=== PATIENT | male | born 1960 | race Caucasian/White ===

== ENCOUNTER → 2016-12-15 | Outpatient (CLI) | payer OTHER | END | disposition home or self-care (01) | LOC: CARD 08:41 | PROVIDERS: ATTEND Internal Medicine | DX: I49.3 Ventricular premature depolarization (principal) | CPT/HCPCS: 93017 ==

== ENCOUNTER → 2017-03-05 | Outpatient (CLI) | payer OTHER ==
[~2017-03-05] MED LIST: AMLO10TA2 PO; AZEL137S4 NAS; FLUT16SP NAS; LISI-170 PO; METO25TA91 PO; OMNIPAQUE 350 MG/ML, 100ML BOTTLE ONE
== END | disposition home or self-care (01) ==
LOC: RAD 13:50
PROVIDERS: ATTEND Internal Medicine Cardiovascular Disease
DX: I71.2 Thoracic aortic aneurysm, without rupture (principal)
CPT/HCPCS: 71275; Q9967

== ENCOUNTER → 2017-03-16 | Outpatient (CLI) | payer OTHER ==
[~2017-03-16] MED LIST changes: -OMNIPAQUE 350 MG/ML, 100ML BOTTLE ONE; +OMNIPAQUE 350 MG/ML, 150 ML BOTTLE ONE
== END | disposition home or self-care (01) ==
LOC: CFH 14:03
PROVIDERS: ATTEND Internal Medicine Cardiovascular Disease
DX: I48.91 Unspecified atrial fibrillation (principal); K44.9 Diaphragmatic hernia without obstruction or gangrene; Z82.49 Family history of ischemic heart disease and other diseases of the circulatory system
CPT/HCPCS: 75572; Q9967

== ENCOUNTER 2017-03-18 06:13 | Day surgery (SDC) | payer OTHER ==
[2017-03-16 13:00] VITALS: BP 126/85
[2017-03-16 13:55] LABS: ASPARTATE AMINO TRANSFERASE 11 U/L (15-37); BLOOD UREA NITROGEN 28 mg/dL (7-18)
[~2017-03-18] VITALS: Ht 177.8 cm; Wt 100.0 kg
[~2017-03-18 06:13] MED LIST changes: -OMNIPAQUE 350 MG/ML, 150 ML BOTTLE ONE
[2017-03-18] MEDS ORDERED: SODIUM CHLORIDE 0.9% 1,000 ML IV SCH (06:28)
[2017-03-18] MEDS ORDERED: SODIUM CHLORIDE 0.9% 1,000 ML IV ONE (06:30)
[2017-03-18] MEDS ORDERED: HEPARIN 1,000 UNITS/ML, 10ML ONE (07:32)
[2017-03-18] MEDS ORDERED: BUPIVACAINE 0.25% ONE (07:32)
[2017-03-18] MEDS ORDERED: FENTANYL PF 250 MCG/5ML ONE (07:42)
[2017-03-18] MEDS ORDERED: MIDAZOLAM 1 MG/ML, 5ML ONE (07:43)
[2017-03-18] MEDS ORDERED: DEXAMETHASONE 4 MG/ML, 1ML ONE (07:55)
[2017-03-18] MEDS ORDERED: ONDANSETRON 2MG/ML, 2ML ONE (07:55)
[2017-03-18] MEDS ORDERED: PROPOFOL 10 MG/ML, 20ML ONE (07:55)
[2017-03-18] MEDS ORDERED: SUCCINYLCHOLINE 20 MG/ML, 10ML ONE (07:55)
[2017-03-18] MEDS ORDERED: ISOPROTERENOL 0.2MG/ML, 5ML ONE (08:53)
[2017-03-18] MEDS ORDERED: ADENOSINE 6 MG/2 ML ONE (09:54)
[2017-03-18] MEDS ORDERED: FENTANYL PF 100 MCG/2ML ONE ×2 (10:49→11:31)
[2017-03-18] MEDS ORDERED: ACETAMINOPHEN 650 MG/20.3 ML UDC ONE (10:49)
[2017-03-18] MEDS ORDERED: OXYcodone 5 MG/5 ML ORAL.SOL UDC ONE (10:50)
[2017-03-18] MEDS ORDERED: OXYcodone 5 MG/5 ML ORAL.SOL UDC PO PRN (11:00)
[2017-03-18] MEDS ORDERED: MEPERIDINE/PF 25MG/0.5ML IVPush PRN (11:00)
[2017-03-18] MEDS ORDERED: HYDROmorphone 1 MG/ML, 1ML IV PRN (11:00)
[2017-03-18] MEDS ORDERED: ONDANSETRON 2MG/ML, 2ML IVPush PRN (11:00)
[2017-03-18] MEDS ORDERED: ACETAMINOPHEN 325 MG TABLET PO PRN (11:00)
[2017-03-18] MEDS ORDERED: PROMETHAZINE 25 MG/ML, 1ML IV PRN (11:00)
[2017-03-18] MEDS ORDERED: MIDAZOLAM 1 MG/ML, 2ML IV PRN (11:00)
[2017-03-18] MEDS: FENTANYL PF 100 MCG/2ML IV PRN ×4 (11:09→11:33)
[2017-03-18] MEDS ORDERED: HYDROmorphone 1 MG/ML, 1ML ONE (11:20)
[2017-03-18] MEDS ORDERED: ONDANSETRON ODT 4 MG ONE (16:22)
[2017-03-18] MEDS ORDERED: ONDANSETRON 4 MG TABLET PO ONE (16:30)
[2017-03-19] MEDS ORDERED: FLUTICASONE NASAL SPRAY 16GM NAS SCH (09:00)
[2017-03-19] MEDS ORDERED: LISINOPRIL 20 MG TABLET PO SCH (09:00)
[2017-03-19] MEDS ORDERED: AMLODIPINE 5 MG TABLET PO SCH (09:00)
[2017-03-19] MEDS ORDERED: AZELASTINE NASAL HOMEINH SCH (09:00)
== END 2017-03-18 18:18 | disposition home or self-care (01) ==
LOC: CACL 06:13 → 5SO 12:16 → CACL 18:18
PROVIDERS: ATTEND Internal Medicine Cardiovascular Disease
DX: I47.1 Supraventricular tachycardia (principal); Z79.01 Long term (current) use of anticoagulants; I10 Essential (primary) hypertension; Z88.2 Allergy status to sulfonamides; Z82.49 Family history of ischemic heart disease and other diseases of the circulatory system; I48.91 Unspecified atrial fibrillation; I08.0 Rheumatic disorders of both mitral and aortic valves
CPT/HCPCS: 36415; 71020; 80053; 85025; 85610; 85730; 93005; 93312; 93321; 93325; 93613; 93621; 93623; 93653; 93655; C1730; C1766; C1894; C2630; J0153; J0330; J1100; J1170; J2250; J2405; J2704; J3010; J3490; Q0162; J1644

== ENCOUNTER → 2019-02-18 | Outpatient (CLI) | payer OTHER ==
[~2019-02-18] MED LIST changes: +AMLO-150 PO; -AMLO10TA2 PO; +AMLO10TA8 PO; +ASPI-496 PO; +FLEC100T PO; +LISI40TA PO; +METF500T17 PO; +METO25TA35 PO; +OXYC-307 PO; +ROSU10TA2 PO; +SPIR25TA5 PO
[2019-02-18 16:45] LABS: BASOPHILS # (AUTO) 0.02 x10^3/uL (0-0.1); BASOPHILS % (AUTO) 0 % (0-1); EOSINOPHILS # (AUTO) 0.24 x10^3/uL (0-0.4); EOSINOPHILS % (AUTO) 5 % (1-7); LYMPHOCYTES % (AUTO) 26 % (22-44); MD NO; MEAN CORPUSCULAR HEMOGLOBIN 31.4 pg (27.5-34.5); MEAN CORPUSCULAR HGB CONC 33.2 g/dL (33.2-36.2); MEAN CORPUSCULAR VOLUME 94.6 fL (81-97); MEAN PLATELET VOLUME 7.8 fL (7.4-10.4); MONOCYTES # (AUTO) 0.37 x10^3/uL (0.2-0.8); MONOCYTES % (AUTO) 7 % (2-9); NEUTROPHILS # (AUTO) 3.44 x10^3/uL (1.8-6.8); NEUTROPHILS % (AUTO) 63 % (42-75); PLATELET COUNT 237 x10^3/uL (130-400); RED BLOOD COUNT 4.74 x10^6/uL (4.38-5.82); RED CELL DISTRIBUTION WIDTH 13.8 % (9.4-14.8)
[2019-02-18 16:48] LABS: MICROSCOPIC NOT IND
[2019-02-18 16:52] LABS: INTERNATIONAL NORMALIZED RATIO 0.95 (0.93-1.1)
[2019-02-18 16:54] LABS: ALANINE AMINOTRANSFERASE 100 U/L (12-78); ANION GAP 5 mmol/L (5-15); CALCIUM 8.9 mg/dL (8.5-10.1); CHLORIDE 107 mmol/L (98-107); CREATININE 0.95 mg/dL (0.7-1.3)
[2019-02-18 16:56] LABS: CULTURE INDICATED? NO
[2019-02-18 17:06] LABS: ALKALINE PHOSPHATASE 111 U/L (45-117); BILIRUBIN,TOTAL 0.4 mg/dL (0.2-1.0); TOTAL PROTEIN 7.5 g/dL (6.4-8.2)
== END | disposition home or self-care (01) ==
LOC: STAR 15:45
PROVIDERS: ATTEND Neurological Surgery
DX: Z01.818 Encounter for other preprocedural examination (principal); K44.9 Diaphragmatic hernia without obstruction or gangrene; M48.061 Spinal stenosis, lumbar region without neurogenic claudication; M43.08 Spondylolysis, sacral and sacrococcygeal region; Z98.890 Other specified postprocedural states
CPT/HCPCS: 36415; 71046; 80053; 81003; 85025; 85610; 85730; 93005

== ENCOUNTER 2019-03-23 07:28 | Inpatient (IN) | payer OTHER ==
[2019-03-22 08:28] LABS: MICROSCOPIC NOT IND
[2019-03-22 08:32] LABS: CULTURE INDICATED? NO
[2019-03-22 08:33] LABS: BASOPHILS # (AUTO) 0.01 x10^3/uL (0-0.1); BASOPHILS % (AUTO) 0 % (0-1); EOSINOPHILS # (AUTO) 0.19 x10^3/uL (0-0.4); EOSINOPHILS % (AUTO) 4 % (1-7); LYMPHOCYTES # (AUTO) 1.09 x10^3/uL (1-3.4); LYMPHOCYTES % (AUTO) 23 % (22-44); MD NO; MEAN CORPUSCULAR HEMOGLOBIN 31.3 pg (27.5-34.5); MEAN CORPUSCULAR VOLUME 92.3 fL (81-97); MEAN PLATELET VOLUME 7.6 fL (7.4-10.4); MONOCYTES # (AUTO) 0.26 x10^3/uL (0.2-0.8); MONOCYTES % (AUTO) 6 % (2-9); NEUTROPHILS # (AUTO) 3.13 x10^3/uL (1.8-6.8); NEUTROPHILS % (AUTO) 67 % (42-75); PLATELET COUNT 236 x10^3/uL (130-400); RED BLOOD COUNT 4.93 x10^6/uL (4.38-5.82); RED CELL DISTRIBUTION WIDTH 12.7 % (9.4-14.8)
[2019-03-22 08:36] VITALS: BP 127/85
[2019-03-22 08:36] LABS: INTERNATIONAL NORMALIZED RATIO 0.95 (0.93-1.1)
[2019-03-22 08:38] LABS: ALANINE AMINOTRANSFERASE 92 U/L (12-78); ANION GAP 9 mmol/L (5-15); CALCIUM 8.8 mg/dL (8.5-10.1); CHLORIDE 105 mmol/L (98-107); CREATININE 1.03 mg/dL (0.7-1.3)
[2019-03-22 08:40] LABS: ALKALINE PHOSPHATASE 80 U/L (45-117); BILIRUBIN,TOTAL 0.4 mg/dL (0.2-1.0); TOTAL PROTEIN 7.6 g/dL (6.4-8.2)
[~2019-03-23] VITALS: Ht 177.8 cm; Wt 117.2 kg
[~2019-03-23 07:28] MED LIST changes: +BACITRACIN 50,000 UNIT ONE; +BUPIVACAINE/EPI 0.5% 1:200K ONE; -FLUT16SP NAS; +FLUT16SP24 NAS; +THROMBIN 5,000 UNIT VIAL TP ONE; +VANCOMYCIN 1,000 MG ONE
[2019-03-23] MEDS ORDERED: PROPOFOL 100 ML ONE (07:52)
[2019-03-23] MEDS ORDERED: MIDAZOLAM 1 MG/ML, 2ML ONE (07:52)
[2019-03-23] MEDS ORDERED: FENTANYL PF 250 MCG/5ML ONE (07:54)
[2019-03-23] MEDS ORDERED: LACTATED RINGERS 1,000 ML IV SCH (07:57)
[2019-03-23] MEDS ORDERED: GABAPENTIN 300 MG CAPSULE PO ONE (08:00)
[2019-03-23] MEDS ORDERED: PROMETHAZINE 25 MG/ML, 1ML IV PRN (08:00)
[2019-03-23] MEDS ORDERED: LABETALOL 5MG/ML, 20ML IV PRN (08:00)
[2019-03-23] MEDS ORDERED: ACETAMINOPHEN 500 MG TABLET PO ONE (08:00)
[2019-03-23] MEDS ORDERED: MEPERIDINE/PF 25MG/0.5ML IVPush PRN (08:00)
[2019-03-23] MEDS ORDERED: OxyconTIN ER 20 MG TAB.ER PO ONE (08:00)
[2019-03-23] MEDS ORDERED: OXYcodone 5 MG/5 ML ORAL.SOL UDC PO PRN (08:00)
[2019-03-23] MEDS ORDERED: FAMOTIDINE 20 MG TABLET PO ONE (08:00)
[2019-03-23] MEDS ORDERED: ONDANSETRON 2MG/ML, 2ML IV PRN (08:00)
[2019-03-23] MEDS ORDERED: hydrALAzine 20 MG/ML, 1ML IV PRN (08:00)
[2019-03-23] MEDS ORDERED: SCOPOLAMINE PATCH, 1.5MG PATCH.TD72 TD ONE (08:46)
[2019-03-23] MEDS ORDERED: DEXAMETHASONE 4 MG/ML, 1ML ONE (09:11)
[2019-03-23] MEDS ORDERED: CEFAZOLIN 1,000 MG ONE ×2 (09:12)
[2019-03-23] MEDS ORDERED: VANCOMYCIN 1,000 MG IM ONE (09:46)
[2019-03-23] MEDS ORDERED: ONDANSETRON 2MG/ML, 2ML ONE (10:14)
[2019-03-23] MEDS ORDERED: PROPOFOL 10 MG/ML, 20ML ONE (10:14)
[2019-03-23] MEDS ORDERED: ROCURONIUM 10MG/ML,5ML ONE (10:14)
[2019-03-23] MEDS ORDERED: SUCCINYLCHOLINE 20 MG/ML, 10ML ONE (10:14)
[2019-03-23] MEDS ORDERED: FENTANYL PF 100 MCG/2ML ONE (12:10)
[2019-03-23] MEDS ORDERED: HYDROmorphone 2 MG/ML, 1ML ONE (12:11)
[2019-03-23] MEDS ORDERED: OXYcodone 5 MG/5 ML ORAL.SOL UDC ONE (12:11)
[2019-03-23] MEDS: FENTANYL PF 100 MCG/2ML IV PRN ×2 (12:17→12:39)
[2019-03-23] MEDS: HYDROmorphone 2 MG/ML, 1ML IVPush PRN ×4 (12:17→12:56)
[2019-03-23] MEDS ORDERED: DIAZEPAM 5 MG/ML, 2ML ONE (12:26)
[2019-03-23] MEDS: DIAZEPAM 5 MG/ML, 2ML IVPush PRN ×2 (12:31→12:54)
[2019-03-23 13:33] VITALS: BP 113/74
[2019-03-23] MEDS ORDERED: HYDROmorphone 2 MG/ML, 1ML IM PRN (15:00)
[2019-03-23] MEDS ORDERED: BISACODYL 10 MG SUPP PR PRN (15:30)
[2019-03-23] MEDS ORDERED: DIPHENHYDRAMINE 50 MG/ML, 1ML IM PRN (15:30)
[2019-03-23] MEDS ORDERED: DIPHENHYDRAMINE 50 MG/ML, 1ML IVPush PRN (15:30)
[2019-03-23] MEDS ORDERED: PROMETHAZINE 25 MG/ML, 1ML IM PRN (15:30)
[2019-03-23] MEDS ORDERED: DIPHENHYDRAMINE 25 MG CAPSULE PO PRN (15:30)
[2019-03-23] MEDS ORDERED: MAGNESIUM HYDROXIDE 8%, 30ML UDC PO PRN (15:30)
[2019-03-23] MEDS ORDERED: METHOCARBAMOL 1,000 MG in DEXTROSE 5% 100 ML IV ONE (15:30)
[2019-03-23] MEDS: HYDROmorphone 1 MG/ML, 1ML INJ IVPush PRN ×3 (15:34→22:17)
[2019-03-23] MEDS: OXYcodone/APAP 10/325MG TABLET PO PRN (15:34)
[2019-03-23] MEDS: NS + 20MEQ KCL 1,000 ML IV SCH (15:35)
[2019-03-23] MEDS: metFORMIN 500 MG TABLET PO SCH (17:06)
[2019-03-23] MEDS: INSULIN REGULAR 100 UNITS/ML, 3ML VIAL SQ-INSULIN SCH ×2 (17:06→20:52)
[2019-03-23] MEDS: CEFAZOLIN PMX 1GM/50ML 50 ML IVPB SCH (17:07)
[2019-03-23] MEDS: HYDROmorphone 2MG TABLET PO PRN ×2 (19:37→20:51)
[2019-03-23 20:00] VITALS: BP 113/72
[2019-03-23] MEDS: ATORVASTATIN 40 MG TABLET PO SCH (20:49)
[2019-03-23] MEDS: AMLODIPINE 5 MG TABLET PO SCH (20:51)
[2019-03-23] MEDS: FLECAINIDE 100MG TABLET PO SCH (20:51)
[2019-03-24 00:08] VITALS: BP 115/79
[2019-03-24] MEDS: HYDROmorphone 2MG TABLET PO PRN ×6 (00:34→21:23)
[2019-03-24] MEDS: CEFAZOLIN PMX 1GM/50ML 50 ML IVPB SCH (00:34)
[2019-03-24] MEDS: NS + 20MEQ KCL 1,000 ML IV SCH ×3 (01:30→21:30)
[2019-03-24] MEDS: HYDROmorphone 1 MG/ML, 1ML INJ IVPush PRN ×3 (03:02→15:01)
[2019-03-24] MEDS: ONDANSETRON 2MG/ML, 2ML IV PRN (03:12)
[2019-03-24 03:34] VITALS: BP 115/74
[2019-03-24 05:59] LABS: BASOPHILS % (AUTO) 0 % (0-1); EOSINOPHILS % (AUTO) 0 % (1-7); LYMPHOCYTES # (AUTO) 0.71 x10^3/uL (1-3.4); LYMPHOCYTES % (AUTO) 7 % (22-44); MD NO; MEAN CORPUSCULAR HEMOGLOBIN 31.2 pg (27.5-34.5); MEAN CORPUSCULAR HGB CONC 33.4 g/dL (33.2-36.2); MEAN CORPUSCULAR VOLUME 93.4 fL (81-97); MEAN PLATELET VOLUME 7.8 fL (7.4-10.4); MONOCYTES # (AUTO) 0.56 x10^3/uL (0.2-0.8); MONOCYTES % (AUTO) 6 % (2-9); NEUTROPHILS % (AUTO) 87 % (42-75); PLATELET COUNT 220 x10^3/uL (130-400); RED BLOOD COUNT 3.87 x10^6/uL (4.38-5.82); RED CELL DISTRIBUTION WIDTH 13.1 % (9.4-14.8)
[2019-03-24 06:03] LABS: ANION GAP 8 mmol/L (5-15); CALCIUM 8.4 mg/dL (8.5-10.1); CHLORIDE 104 mmol/L (98-107); CREATININE 1.01 mg/dL (0.7-1.3)
[2019-03-24] MEDS: ENOXAPARIN 40 MG/0.4 ML SQ SCH (06:06)
[2019-03-24 07:18] VITALS: BP 118/73
[2019-03-24] MEDS ORDERED: AMLODIPINE 5 MG TABLET PO SCH (09:00)
[2019-03-24] MEDS: metFORMIN 500 MG TABLET PO SCH ×2 (09:01→16:16)
[2019-03-24] MEDS: SENNA/DOCUSATE TABLET PO SCH (09:01)
[2019-03-24] MEDS: AZELASTINE 0.1% NAS SCH (09:02)
[2019-03-24] MEDS: METOPROLOL TARTRATE 25 MG TABLET PO SCH (09:02)
[2019-03-24] MEDS: LISINOPRIL 40 MG TABLET PO SCH (09:02)
[2019-03-24] MEDS: FLUTICASONE NASAL SPRAY 16GM NAS SCH (09:02)
[2019-03-24] MEDS: SPIRONOLACTONE 25 MG TABLET PO SCH (09:02)
[2019-03-24] MEDS: INSULIN REGULAR 100 UNITS/ML, 3ML VIAL SQ-INSULIN SCH ×4 (09:03→21:36)
[2019-03-24] MEDS: METHOCARBAMOL 750 MG TABLET PO PRN ×2 (11:21→19:45)
[2019-03-24 13:11] VITALS: BP 95/57
[2019-03-24 19:37] VITALS: BP 103/56
[2019-03-24] MEDS: FLECAINIDE 100MG TABLET PO SCH (21:23)
[2019-03-24] MEDS: ATORVASTATIN 40 MG TABLET PO SCH (21:23)
[2019-03-24] MEDS: AMLODIPINE 5 MG TABLET PO SCH (21:23)
[2019-03-25 01:20] VITALS: BP 97/60
[2019-03-25] MEDS: OXYcodone/APAP 10/325MG TABLET PO PRN ×5 (01:23→21:42)
[2019-03-25] MEDS: HYDROmorphone 2MG TABLET PO PRN ×2 (03:26→08:10)
[2019-03-25] MEDS: ENOXAPARIN 40 MG/0.4 ML SQ SCH (05:26)
[2019-03-25 05:42] LABS: BASOPHILS # (AUTO) 0.02 x10^3/uL (0-0.1); BASOPHILS % (AUTO) 0 % (0-1); EOSINOPHILS # (AUTO) 0.17 x10^3/uL (0-0.4); EOSINOPHILS % (AUTO) 3 % (1-7); LYMPHOCYTES # (AUTO) 1.32 x10^3/uL (1-3.4); LYMPHOCYTES % (AUTO) 21 % (22-44); MD NO; MEAN CORPUSCULAR HGB CONC 34.1 g/dL (33.2-36.2); MEAN CORPUSCULAR VOLUME 93.9 fL (81-97); MEAN PLATELET VOLUME 7.7 fL (7.4-10.4); MONOCYTES # (AUTO) 0.47 x10^3/uL (0.2-0.8); MONOCYTES % (AUTO) 8 % (2-9); NEUTROPHILS # (AUTO) 4.34 x10^3/uL (1.8-6.8); NEUTROPHILS % (AUTO) 69 % (42-75); PLATELET COUNT 174 x10^3/uL (130-400); RED BLOOD COUNT 3.58 x10^6/uL (4.38-5.82); RED CELL DISTRIBUTION WIDTH 13.1 % (9.4-14.8)
[2019-03-25 05:47] LABS: CHLORIDE 105 mmol/L (98-107)
[2019-03-25 05:51] LABS: ANION GAP 5 mmol/L (5-15); CALCIUM 8.3 mg/dL (8.5-10.1); CREATININE 0.75 mg/dL (0.7-1.3)
[2019-03-25] MEDS: ONDANSETRON 2MG/ML, 2ML IV PRN ×2 (06:32→17:54)
[2019-03-25 06:48] VITALS: BP 99/67
[2019-03-25] MEDS: INSULIN REGULAR 100 UNITS/ML, 3ML VIAL SQ-INSULIN SCH ×4 (07:00→20:42)
[2019-03-25] MEDS: NS + 20MEQ KCL 1,000 ML IV SCH ×2 (07:30→17:13)
[2019-03-25] MEDS: metFORMIN 500 MG TABLET PO SCH ×2 (08:11→17:12)
[2019-03-25] MEDS ORDERED: HYDROmorphone 1 MG/ML, 1ML INJ IVPush PRN ×2 (08:30)
[2019-03-25] MEDS ORDERED: OXYcodone IR 5MG TABLET PO PRN (08:30)
[2019-03-25] MEDS: LISINOPRIL 40 MG TABLET PO SCH (08:47)
[2019-03-25] MEDS: SENNA/DOCUSATE TABLET PO SCH (08:47)
[2019-03-25] MEDS: METOPROLOL TARTRATE 25 MG TABLET PO SCH (08:47)
[2019-03-25] MEDS: SPIRONOLACTONE 25 MG TABLET PO SCH (08:47)
[2019-03-25] MEDS: AZELASTINE 0.1% NAS SCH (08:49)
[2019-03-25] MEDS: FLUTICASONE NASAL SPRAY 16GM NAS SCH (08:50)
[2019-03-25] MEDS: METHOCARBAMOL 750 MG TABLET PO SCH ×3 (11:19→20:30)
[2019-03-25 13:04] VITALS: BP 103/67
[2019-03-25 20:00] VITALS: BP 97/62
[2019-03-25] MEDS: FLECAINIDE 100MG TABLET PO SCH (20:29)
[2019-03-25] MEDS: AMLODIPINE 5 MG TABLET PO SCH (20:29)
[2019-03-25] MEDS: ATORVASTATIN 40 MG TABLET PO SCH (20:30)
[2019-03-25 21:41] VITALS: BP 95/53
[2019-03-26] MEDS: NS + 20MEQ KCL 1,000 ML IV SCH (01:35)
[2019-03-26] MEDS: OXYcodone/APAP 10/325MG TABLET PO PRN ×3 (01:35→11:41)
[2019-03-26 02:00] VITALS: BP 93/57
[2019-03-26] MEDS: ONDANSETRON 2MG/ML, 2ML IV PRN (04:18)
[2019-03-26 05:32] LABS: MEAN CORPUSCULAR HGB CONC 34.1 g/dL (33.2-36.2); MEAN CORPUSCULAR VOLUME 93.8 fL (81-97); MEAN PLATELET VOLUME 7.8 fL (7.4-10.4); PLATELET COUNT 174 x10^3/uL (130-400); RED BLOOD COUNT 3.58 x10^6/uL (4.38-5.82); RED CELL DISTRIBUTION WIDTH 12.8 % (9.4-14.8)
[2019-03-26 05:35] LABS: ANION GAP 5 mmol/L (5-15); CALCIUM 8.2 mg/dL (8.5-10.1); CHLORIDE 103 mmol/L (98-107); CREATININE 0.74 mg/dL (0.7-1.3)
[2019-03-26] MEDS: METHOCARBAMOL 750 MG TABLET PO SCH ×2 (06:03→11:00)
[2019-03-26] MEDS: ENOXAPARIN 40 MG/0.4 ML SQ SCH (06:04)
[2019-03-26 06:15] LABS: BASOPHILS # (AUTO) 0.01 x10^3/uL (0-0.1); BASOPHILS % (AUTO) 0 % (0-1); EOSINOPHILS # (AUTO) 0.12 x10^3/uL (0-0.4); EOSINOPHILS % (AUTO) 4 % (1-7); LYMPHOCYTES # (AUTO) 0.78 x10^3/uL (1-3.4); LYMPHOCYTES % (AUTO) 29 % (22-44); MD SCAN; MONOCYTES # (AUTO) 0.21 x10^3/uL (0.2-0.8); MONOCYTES % (AUTO) 8 % (2-9); NEUTROPHILS % (AUTO) 59 % (42-75)
[2019-03-26] MEDS: INSULIN REGULAR 100 UNITS/ML, 3ML VIAL SQ-INSULIN SCH ×2 (07:00→11:40)
[2019-03-26 07:07] VITALS: BP 82/53
[2019-03-26] MEDS: metFORMIN 500 MG TABLET PO SCH (08:29)
[2019-03-26] MEDS: SENNA/DOCUSATE TABLET PO SCH (08:30)
[2019-03-26 08:32] VITALS: BP 108/70
[2019-03-26] MEDS: AZELASTINE 0.1% NAS SCH (08:39)
[2019-03-26] MEDS: SPIRONOLACTONE 25 MG TABLET PO SCH (08:40)
[2019-03-26] MEDS: FLUTICASONE NASAL SPRAY 16GM NAS SCH (08:40)
[2019-03-26] MEDS: METOPROLOL TARTRATE 25 MG TABLET PO SCH (08:41)
[2019-03-26] MEDS: LISINOPRIL 40 MG TABLET PO SCH (08:41)
[2019-03-26] MEDS ORDERED: METH750T87 PO (09:19)
[2019-03-26] MEDS ORDERED: MORP-52 PO (09:20)
[2019-03-26 11:12] VITALS: BP 91/56
== END 2019-03-26 12:21 | disposition home or self-care (01) | DRG 460 ==
LOC: ORIP 07:28 → EDSTATUS 09:30 → 4NOR 13:13 → DCLOUNGE 03-26 12:21
PROVIDERS: ADMIT Neurological Surgery; ATTEND Neurological Surgery
PROC: 01NB0ZZ Release Lumbar Nerve, Open Approach (ICD-10-PCS; 2019-03-23)
PROC: 00NY0ZZ Release Lumbar Spinal Cord, Open Approach (ICD-10-PCS; 2019-03-23)
PROC: 4A11X4G Monitoring of Peripheral Nervous Electrical Activity, Intraoperative, External Approach (ICD-10-PCS; 2019-03-23)
PROC: 0SG00AJ Fusion of Lumbar Vertebral Joint with Interbody Fusion Device, Posterior Approach, Anterior Column, Open Approach (ICD-10-PCS; principal; 2019-03-23 09:30)
DX: M48.062 Spinal stenosis, lumbar region with neurogenic claudication (principal); M54.32 Sciatica, left side; M54.31 Sciatica, right side; I10 Essential (primary) hypertension; G47.33 Obstructive sleep apnea (adult) (pediatric); E11.9 Type 2 diabetes mellitus without complications; G89.29 Other chronic pain; M43.16 Spondylolisthesis, lumbar region; M51.16 Intervertebral disc disorders with radiculopathy, lumbar region; Z88.2 Allergy status to sulfonamides
CPT/HCPCS: 36415; 72100; 72131; 80048; 80053; 81003; 82962; 85025; 85610; 85730; C1713; C1729; C1776; G0378; J0690; J1100; J1170; J1650; J1815; J2250; J2405; J2550; J2704; J3010; J3360; J3370; J3480; C1763; J0330; J2800

== ENCOUNTER 2019-09-15 13:15 | Outpatient (CLI) | payer OTHER ==
[~2019-09-15 13:15] MED LIST changes: -BACITRACIN 50,000 UNIT ONE; -BUPIVACAINE/EPI 0.5% 1:200K ONE; +METH750T87 PO; +MORP-52 PO; -THROMBIN 5,000 UNIT VIAL TP ONE; -VANCOMYCIN 1,000 MG ONE
== END 2019-09-15 23:59 | disposition home or self-care (01) ==
LOC: CVU 13:15
PROVIDERS: ATTEND Registered Nurse
DX: I08.2 Rheumatic disorders of both aortic and tricuspid valves (principal); I71.9 Aortic aneurysm of unspecified site, without rupture; I10 Essential (primary) hypertension; E78.5 Hyperlipidemia, unspecified; E11.9 Type 2 diabetes mellitus without complications
CPT/HCPCS: 93306

== ENCOUNTER → 2021-03-18 | Outpatient (CLI) | payer OTHER ==
[~2021-03-18] MED LIST changes: +AMLO-211 PO; -AMLO10TA8 PO; -LISI40TA PO; +LISI40TA9 PO; -OXYC-307 PO; +OXYC-380 PO
== END | disposition home or self-care (01) ==
LOC: CVU 13:56
PROVIDERS: ATTEND Physician Assistant Medical
DX: I08.8 Other rheumatic multiple valve diseases (principal); I71.9 Aortic aneurysm of unspecified site, without rupture
CPT/HCPCS: 93306